=== PATIENT | male | born 1970 | race Caucasian/White ===

== ENCOUNTER 2019-04-25 11:58 | Emergency (ER) | payer BC ==
[2019-04-25 12:47] LABS: ABS Eosinophils 0.1 10^3/ul (0-0.6); ABS Lymphocytes 2.1 10^3/ul (1.0-4.8); ABS Monocytes 0.4 10^3/ul (0-0.8); ABS Neutrophils 3.9 10^3/ul (1.5-7.7); Eosinophil % 1.3 %; Hematocrit 45 % (42-52); Lymphocyte % 31.7 %; Mean Corpuscular HGB Conc 35 g/dL (31-36); Mean Corpuscular Hemoglobin 30 pg (27-31); Mean Corpuscular Volume 86 fL (80-94); Nucleated Red Blood Cells % 0.1; Platelet Count 242 10^3/uL (150-450); Red Blood Count 5.25 10^6 /uL (4.18-5.48); Red Cell Distribution Width 12 % (10-15); White Blood Count 6.6 10^3/uL (3.5-10.8)
[2019-04-25 13:04] LABS: Albumin 4.5 g/dL (3.2-5.2); Albumin/Globulin Ratio 1.9 (1-3); BUN/Creatinine Ratio 14.3 (8-20); Calcium 9.6 mg/dL (8.6-10.3); EGFR African American 91.2 (>60); EGFR Non-African American 75.4 (>60); Globulin 2.4 g/dL (2-4); Total Bilirubin 0.5 mg/dL (0.2-1.0); Total Protein 6.9 g/dL (6.4-8.9); Troponin I 0.01 ng/mL (<0.03)
[2019-04-25 13:13] LABS: INR 1.02 (0.82-1.09)
--- OUTSIDE RECORDS SUMMARY | 2019-04-25 13:51 | XMS REPORT | Continuity of Care Document ---
:1970 External Reference #:[id number] Author Name Kevin Livingston MD Address [address] [place] [id number] Problems Description No Information Available Social History Type Date Description Comments Sex Unknown Allergies, Adverse Reactions, Alerts Description No Known Drug Allergies Medications Description No Active Medications Immunizations CPT Code Status Date Vaccine Lot # [id number] Given 03/03/2016 Influenza Virus Vaccine, Quadrivalent, Split Virus, Im Use 0.5ML 88764 Given 03/03/2016 Flu < 65 years 25743 Given 03/03/2016 Influenza Virus Vaccine, Quadrivalent, Split, Preservative Free 68434 Given 03/03/2016 Flumist 45705 Given 03/03/2016 Flu High Dose 17912 Given 03/03/2016 Influenza Virus Vaccine, Split, Preserv Free, Intradermal Use 51272 Given 04/23/2015 Influenza Virus Vaccine, Quadrivalent, Split Virus, Im Use 0.5ML 04277 Given 04/23/2015 Flu < 65 years 18998 Given 04/23/2015 Influenza Virus Vaccine, Quadrivalent, Split, Preservative Free 73846 Given 04/23/2015 Flumist 31665 Given 04/23/2015 Flu High Dose 36879 Given 04/07/2014 Flu High Dose 72557 Given 04/07/2014 Flumist 64314 Given 04/07/2014 Influenza Virus Vaccine, Quadrivalent, Split, Preservative Free 73520 Given 04/07/2014 Flu < 65 years 64919 Given 04/07/2014 Influenza Virus Vaccine, Quadrivalent, Split Virus, Im Use 0.5ML 95898 Given 03/10/2013 Influenza Virus Vaccine Split Virus Intramuscular Use 0.5ML 54603 Given 03/10/2013 Flu High Dose 21522 Given 03/10/2013 Flumist 95808 Given 03/10/2013 Influenza Virus Vaccine, Quadrivalent, Split, Preservative Free 46125 Given 03/10/2013 Flu < 65 years 90138 Given 03/10/2013 Influenza Virus Vaccine, Quadrivalent, Split, Im Use 0.25ML 26802 Given 03/10/2013 Influenza Virus Vaccine, Quadrivalent, Split, Im Use 0.25ML 51264 Given 03/10/2013 Influenza Virus Vaccine, Quadrivalent, Split, Im Use 0.25ML 19262 Given 03/10/2013 Influenza Virus Vaccine, Quadrivalent, Split, Im Use 0.25ML 13440 Given 11/10/2012 Tdap - Boostrix/Adacel 73081 Given 02/27/2012 Influenza Virus Vaccine Split Virus Intramuscular Use 0.5ML 49941 Given 02/27/2012 Flu High Dose 06254 Given 02/27/2012 Flumist 01367 Given 02/27/2012 Influenza Virus Vaccine, Quadrivalent, Split, Preservative Free 99496 Given 02/27/2012 Flu < 65 years 33784 Given 02/27/2012 Influenza Virus Vaccine, Quadrivalent, Split, Im Use 0.25ML 45574 Given 02/27/2012 Influenza Virus Vaccine, Quadrivalent, Split, Im Use 0.25ML 20794 Given 02/27/2012 Influenza Virus Vaccine, Quadrivalent, Split, Im Use 0.25ML 07638 Given 02/27/2012 Influenza Virus Vaccine, Quadrivalent, Split, Im Use 0.25ML 75192 Given 03/28/2011 Influenza Virus Vaccine, Split Virus, Preservative Free Im 0.5ML 50595 Given 03/28/2011 Flu High Dose 91870 Given 03/28/2011 Flumist 38358 Given 03/28/2011 Influenza Virus Vaccine, Quadrivalent, Split, Preservative Free 42973 Given 03/28/2011 Flu < 65 years 74346 Given 03/28/2011 Flu < 65 years 22868 Given 03/28/2011 Influenza Virus Vaccine, Quadrivalent, Split, Im Use 0.25ML 91813 Given 03/28/2011 Influenza Virus Vaccine, Quadrivalent, Split, Im Use 0.25ML 41072 Given 03/28/2011 Influenza Virus Vaccine, Quadrivalent, Split, Im Use 0.25ML 62098 Given 04/19/2010 Influenza Virus Vaccine, Quadrivalent, Split, Im Use 0.25ML 85665 Given 04/19/2010 Influenza Virus Vaccine Split Virus Intramuscular Use 0.5ML 44153 Given 04/02/2009 Influenza Virus Vaccine, Quadrivalent, Split, Im Use 0.25ML 83095 Given 04/02/2009 Influenza Virus Vaccine, Quadrivalent, Split, Im Use 0.25ML 55019 Given 04/02/2009 Influenza Vaccine, Pandemic Formulation, H1N1 32875 Given 04/02/2009 Influenza Virus Vaccine Split Virus Intramuscular Use 0.5ML 46615 Given 04/02/2009 H1N1 Immunization Admin (Intramuscular,Intranasal) Inc Counseling 24265 Given 07/30/2005 Pediarix - Dtap/HepB/Polio 46031 Given 07/30/2005 Pneumococcal Conjugate Vaccine 7 Valent For Intramuscular Use 15617 Given 07/30/2005 Hib ActiHib/Hiberix 30246 Given 04/02/2005 Influenza Virus Vaccine Split Virus Intramuscular Use 0.5ML Vital Signs Date Vital Result Comment 03/01/2019 8:50am BP Systolic 140 mmHg BP Diastolic 78 mmHg Height 66.25 inches 5'6.25" Weight 181.00 lb Heart Rate 95 /min Body Temperature 96.9 F O2 % BldC Oximetry 96 % BMI (Body Mass Index) 29.0 kg/m2 08/05/2018 10:54am BP Systolic 124 mmHg Weight 190.00 lb Heart Rate 87 /min Body Temperature 97.1 F O2 % BldC Oximetry 97 % Results Test Date Facility Test Result H/L Range Note CBC Auto 03/01/2019 [facility] White Blood 8.0 10^3/uL Normal 3.5-10.[address] [place] [address] [phone] Red Blood Count 5.18 10^6/uL Normal 4.18-5.48 Hemoglobin 15.9 g/dL Normal 14.0-18.0 Hematocrit 45 % Normal 42-52 Mean Corpuscular Volume 87 fL Normal 80-94 Mean Corpuscular Hemoglobin 31 pg Normal 27-31 Mean Corpuscular HGB Conc 35 g/dL Normal 31-36 Red Cell Distribution Width 12 % Normal 10-15 Platelet Count 216 10^3/uL Normal 150-450 Mean Platelet Volume 7.1 fL Low 7.4-10.4 Abs Neutrophils 4.8 10^3/uL Normal 1.5-7.7 Abs Lymphocytes 2.4 10^3/uL Normal 1.0-4.8 Abs Monocytes 0.7 10^3/uL Normal 0-0.8 Abs Eosinophils 0.1 10^3/uL Normal 0-0.6 Abs Basophils 0.1 10^3/uL Normal 0-0.2 Abs Nucleated RBC 0.0 10^3/uL Granulocyte % 60.6 % Lymphocyte % 29.7 % Monocyte % 8.2 % Eosinophil % 0.8 % Basophil % 0.7 % Nucleated Red Blood Cells % 0.3 Laboratory test 03/01/2019 [facility] TSH (Thyroid <pending> finding [address] [place]) [place] [address] [phone] Laboratory test 03/01/2019 [facility] Ferritin <pending> finding [address] [place] [address] [phone] Procedures Description No Information Available Medical Devices Description No Information Available Encounters Type Date Location Provider Dx Diagnosis Office Visit 03/01/2019 9:00a [facility] Kevin Livingston MD Z00.00 Encntr for general adult medical exam w/o abnormal findings Assessments Date Code Description Provider 03/01/2019 Z00.00 Encounter for general adult medical examination Kevin Livingston MD without abnormal findings Plan of Treatment 03/01/2019 - Kevin Livingston MDZ00.00 Encounter for general adult medical examination without abnormal findingsAllNew Medication:No Active Medications - Referral:Chloe Zamorano, Functional Status Description No Information Available Mental Status Description No Information Available Referrals Refer to Reason for Referral Status Appt Date Chloe Zamorano insomnia, fatigue, Sent [address] [id number]
--- OUTSIDE RECORDS SUMMARY | 2019-04-25 13:51 | XMS REPORT | Continuity of Care Document ---
:1970 External Reference #:[id number] Author Name Kevin Livingston MD Address [address] [place] [id number] Problems Description No Information Available Social History Type Date Description Comments Sex Unknown Allergies, Adverse Reactions, Alerts Description No Known Drug Allergies Medications Description No Active Medications Immunizations CPT Code Status Date Vaccine Lot # [id number] Given 03/01/2019 Flu < 65 years [id number] 07993 Given 03/03/2016 Influenza Virus Vaccine, Quadrivalent, Split Virus, Im Use 0.5ML 23212 Given 03/03/2016 Flu < 65 years 53837 Given 03/03/2016 Influenza Virus Vaccine, Quadrivalent, Split, Preservative Free 01774 Given 03/03/2016 Flumist 88689 Given 03/03/2016 Flu High Dose 38465 Given 03/03/2016 Influenza Virus Vaccine, Split, Preserv Free, Intradermal Use 31262 Given 04/23/2015 Influenza Virus Vaccine, Quadrivalent, Split Virus, Im Use 0.5ML 79525 Given 04/23/2015 Flu < 65 years 28220 Given 04/23/2015 Influenza Virus Vaccine, Quadrivalent, Split, Preservative Free 52390 Given 04/23/2015 Flumist 45150 Given 04/23/2015 Flu High Dose 05208 Given 04/07/2014 Flu High Dose 27469 Given 04/07/2014 Flumist 31278 Given 04/07/2014 Influenza Virus Vaccine, Quadrivalent, Split, Preservative Free 34575 Given 04/07/2014 Flu < 65 years 13341 Given 04/07/2014 Influenza Virus Vaccine, Quadrivalent, Split Virus, Im Use 0.5ML 25870 Given 03/10/2013 Influenza Virus Vaccine Split Virus Intramuscular Use 0.5ML 76710 Given 03/10/2013 Flu High Dose 78355 Given 03/10/2013 Flumist 89991 Given 03/10/2013 Influenza Virus Vaccine, Quadrivalent, Split, Preservative Free 18935 Given 03/10/2013 Flu < 65 years 44122 Given 03/10/2013 Influenza Virus Vaccine, Quadrivalent, Split, Im Use 0.25ML 11476 Given 03/10/2013 Influenza Virus Vaccine, Quadrivalent, Split, Im Use 0.25ML 62938 Given 03/10/2013 Influenza Virus Vaccine, Quadrivalent, Split, Im Use 0.25ML 72376 Given 03/10/2013 Influenza Virus Vaccine, Quadrivalent, Split, Im Use 0.25ML 94484 Given 11/10/2012 Tdap - Boostrix/Adacel 85339 Given 02/27/2012 Influenza Virus Vaccine Split Virus Intramuscular Use 0.5ML 19410 Given 02/27/2012 Flu High Dose 39243 Given 02/27/2012 Flumist 81664 Given 02/27/2012 Influenza Virus Vaccine, Quadrivalent, Split, Preservative Free 76995 Given 02/27/2012 Flu < 65 years 50160 Given 02/27/2012 Influenza Virus Vaccine, Quadrivalent, Split, Im Use 0.25ML 68499 Given 02/27/2012 Influenza Virus Vaccine, Quadrivalent, Split, Im Use 0.25ML 26923 Given 02/27/2012 Influenza Virus Vaccine, Quadrivalent, Split, Im Use 0.25ML 49565 Given 02/27/2012 Influenza Virus Vaccine, Quadrivalent, Split, Im Use 0.25ML 35413 Given 03/28/2011 Influenza Virus Vaccine, Split Virus, Preservative Free Im 0.5ML 31121 Given 03/28/2011 Flu High Dose 19892 Given 03/28/2011 Flumist 07718 Given 03/28/2011 Influenza Virus Vaccine, Quadrivalent, Split, Preservative Free 52505 Given 03/28/2011 Flu < 65 years 03968 Given 03/28/2011 Flu < 65 years 16857 Given 03/28/2011 Influenza Virus Vaccine, Quadrivalent, Split, Im Use 0.25ML 09782 Given 03/28/2011 Influenza Virus Vaccine, Quadrivalent, Split, Im Use 0.25ML 49982 Given 03/28/2011 Influenza Virus Vaccine, Quadrivalent, Split, Im Use 0.25ML 49505 Given 04/19/2010 Influenza Virus Vaccine, Quadrivalent, Split, Im Use 0.25ML 19295 Given 04/19/2010 Influenza Virus Vaccine Split Virus Intramuscular Use 0.5ML 81898 Given 04/02/2009 Influenza Virus Vaccine, Quadrivalent, Split, Im Use 0.25ML 04417 Given 04/02/2009 Influenza Virus Vaccine, Quadrivalent, Split, Im Use 0.25ML 34246 Given 04/02/2009 Influenza Vaccine, Pandemic Formulation, H1N1 37739 Given 04/02/2009 Influenza Virus Vaccine Split Virus Intramuscular Use 0.5ML 96179 Given 04/02/2009 H1N1 Immunization Admin (Intramuscular,Intranasal) Inc Counseling 20051 Given 07/30/2005 Pediarix - Dtap/HepB/Polio 97182 Given 07/30/2005 Pneumococcal Conjugate Vaccine 7 Valent For Intramuscular Use 20088 Given 07/30/2005 Hib ActiHib/Hiberix 89899 Given 04/02/2005 Influenza Virus Vaccine Split Virus [...] Result H/L Range Note CBC Auto 03/01/2019 [facility] White Blood 8.0 10^3/uL Normal 3.5-10.[address] [place] [address] [phone] Red Blood Count 5.18 10^6/uL Normal 4.18-5.48 [...] Nucleated Red Blood Cells % 0.3 Laboratory 03/01/2019 [facility] TSH (Thyroid 1.54 Normal 0.34 -5.[address]) mcIU/[place] [address] [phone] Lipid Profile 03/01/2019 [facility] Triglycerides 490 mg/dL 1 (Trig/Chol/HD [address]) [place], [place] [id number] [phone] Cholesterol 226 mg/dL 2 HDL Cholesterol 39.6 mg/dL 3 LDL Cholesterol (SEE NOTE) mg/dL 4 Laboratory test 03/01/2019 [facility] Ferritin 242.0 ng/mL Normal 24-[address] [place], [place] [id number] [phone] Comp Metabolic 03/01/2019 [facility] Sodium 138 mmol/L Normal 135-145 Panel [address] [place], [place] [id number] [phone] Potassium 4.1 mmol/L Normal 3.5-5.0 Chloride 104 mmol/L Normal 101-111 Co2 Carbon Dioxide 26 mmol/L Normal 22-32 Anion Gap 8 mmol/L Normal 2-11 Glucose 75 mg/dL Normal 70-100 Blood Urea Nitrogen 18 mg/dL Normal 6-24 Creatinine 1.02 mg/dL Normal 0.67-1.17 BUN/Creatinine Ratio 17.6 Normal 8-20 Calcium 9.7 mg/dL Normal 8.6-10.3 Total Protein 7.2 g/dL Normal 6.4-8.9 Albumin 4.7 g/dL Normal 3.2-5.2 Globulin 2.5 g/dL Normal 2-4 Albumin/Globulin Ratio 1.9 Normal 1-3 Total Bilirubin 0.50 mg/dL Normal 0.2-1.0 Alkaline Phosphatase 55 U/L Normal 34-104 Alt 47 U/L Normal 7-52 Ast 25 U/L Normal 13-39 Egfr Non- 78.0 >60 Egfr 94.3 >60 5 Laboratory test 03/01/2019 [facility] LDL Cholesterol 123 mg/dL [address] [place] [address] [phone] Desirable: <150 Borderline High: 150-199 High: 200-499 Very High: >500 2 Desirable: <200 Borderline High: 200-239 High: >239 3 Low: <40 Desirable: 40-60 High: >60 4 Unable to calculate LDL as triglyceride is > 400 5 Because ethnic data is not always readily available, this report includes an eGFR for both -Americans and non- Americans. The National Kidney Disease Education Program (NKDEP) does not endorse the use of the MDRD equation for patients that are not between the ages of 18 and 70, are , have extremes of body size, muscle mass, or nutritional status, or are non- or non-. According to the National Kidney Foundation, irrespective of diagnosis, the stage of the disease is based on the level of kidney function: Stage Description GFR(mL/min/1.73 m(2)) 1 Kidney damage with normal or decreased GFR 90 2 Kidney damage with mild decrease in GFR 60-89 3 Moderate decrease in GFR 30-59 4 Severe decrease in GFR 15-29 5 Kidney failure <15 (or dialysis) 6 Desirable: <100 Near Optimal: 100-129 Borderline High: 130-159 High: 160-189 Very High: >189 Procedures Description No Information Available Medical Devices [...] Description No Information Available Referrals Refer to Dr Reason for Referral Status Appt Date Chloe Zamorano insomnia, fatigue, Sent [address] [id number] [phone]
[2019-04-25 13:52] LABS: Potassium 4.1 mmol/L (3.5-5.0)
[2019-04-25] MEDS ORDERED: Ketorolac INJ* 30 MG/ML 1 ML VIAL IV PUSH ONE (14:11)
--- NOTE | 2019-04-25 14:22 | ED ---
HPI Chest Pain - HPI Summary HPI Summary: The patient is a [id number]-male presenting to [facility] emergency department with a chief complaint of sudden onset left anterior chest pain this afternoon. He reports that he was running on the treadmill this morning when he sneezed, and then suddenly felt a pain in the left chest that radiates into the upper back. The pain has been dull but constant since onset rated 4/10 in severity now. He has not taken any medications prior to arrival for treatment. He denies any nausea, vomiting, shortness of breath, or dizziness. He states that this could be similar to pulling a muscle before, but previously those pains would not last as long. PMHx: hypertension (no meds). Former smoker, occasional EtOH, no substance use. Medications reviewed. Allergies noted. - History of Current Complaint Chief Complaint: EDChestPainROMI Time Seen by Provider: 04/25/19 13:55 Hx Obtained From: Patient Onset/Duration: Started Hours Ago, Still Present Timing: Constant, Lasting Hours Initial Severity: Moderate Current Severity: Moderate Pain Intensity: 4 Pain Scale Used: 0-10 Numeric Chest Pain Location: Left Anterior Chest Pain Radiates: No Character: Dull/Aching Aggravating Factor(s): Nothing Alleviating Factor(s): Nothing Associated Signs and Symptoms: Positive: Chest Pain. 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 Denies: Hx Chronic Obstructive Pulmonary Disease (COPD) GI History: Denies: Hx Ulcer Sensory History: Denies: Hx Contacts or Glasses, Hx Hearing Aid Opthamlomology History: Denies: Hx Contacts or Glasses Neurological History: 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 Psychiatric History: Denies: Hx Panic Disorder - Surgical History Surgical History: Yes Surgery Procedure, Year, and Place: Back surgery for herniated disc 2013 - Immunization History Date of Influenza Vaccine: 2019 Immunizations Up to Date: Yes Infectious Disease History: No Infectious Disease History: Denies: Hx Hepatitis, Hx Human Immunodeficiency Virus (HIV), History Other Infectious Disease, Traveled Outside the [place] in Last 30 Days - Family History Known Family History: Negative: Cardiac Disease - Social History Alcohol Use: Occasionally Hx Substance Use: No Substance Use Type: Reports: None Hx Tobacco Use: Yes Smoking Status (MU): Former Smoker Review of Systems Positive: Chest Pain - left anterior radiating into back Negative: Shortness Of Breath Negative: Vomiting, Nausea Neurological: Other - Negative: dizziness All Other Systems Reviewed And Are Negative: Yes Physical Exam - Summary Physical Exam Summary: VITAL SIGNS: Reviewed. GENERAL: Patient is a well-developed and nourished male who is lying comfortable in the stretcher. Patient is not in any acute respiratory distress. HEAD AND FACE: No signs of trauma. No ecchymosis, hematomas or skull depressions. No sinus tenderness. EYES: PERRLA, EOMI x 2, No injected conjunctiva, no nystagmus. EARS: Hearing grossly intact. Ear canals and tympanic membranes are within normal limits. MOUTH: Oropharynx within normal limits. NECK: Supple, trachea is midline, no adenopathy, no JVD, no carotid bruit, no c- spine tenderness, neck with full ROM. CHEST: Symmetric, reproducible chest pain to palpation. LUNGS: Clear to auscultation bilaterally. No wheezing or crackles. CVS: Regular rate and rhythm, S1 and S2 present, no murmurs or gallops appreciated. ABDOMEN: Soft, non-tender. No signs of distention. No rebound, no guarding, and no masses palpated. Bowel sounds are normal. EXTREMITIES: FROM in all major joints, no edema, no cyanosis or clubbing. NEURO: Alert and oriented x 3. No acute neurological deficits. Speech is normal and follows commands. SKIN: Dry and warm. Triage Information Reviewed: Yes Vital Signs On Initial Exam: Initial Vitals Temp Pulse Resp BP Pulse Ox 97.9 F 77 19 158/100 98 04/25/19 12:01 04/25/19 12:01 04/25/19 12:01 04/25/19 12:01 04/25/19 12:01 Vital Signs Reviewed: Yes Procedures - Sedation Patient Received Moderate/Deep Sedation with Procedure: No Diagnostics - Vital Signs Vital Signs Temp Pulse Resp BP Pulse Ox 04/25/19 13:33 75 138/90 95 04/25/19 13:30 73 95 04/25/19 12:01 97.9 F 77 19 158/100 98 - Laboratory Lab Results: Lab Results 04/25/19 04/25/19 04/25/19 Range/Units 12:17 12:17 12:17 WBC 6.6 (3.5-10.8) 10^3/uL RBC 5.25 (4.18-5.48) 10^6 /uL Hgb 16.0 (14.0-18.0) g/dL Hct 45 (42-52) % MCV 86 (80-94) fL MCH 30 (27-31) pg MCHC 35 (31-36) g/dL RDW 12 (10-15) % Plt Count 242 (150-450) 10^3/uL MPV 7.0 L (7.4-10.4) fL Neut % (Auto) 59.4 % Lymph % (Auto) 31.7 % Placer % (Auto) 6.8 % Eos % (Auto) 1.3 % Baso % (Auto) 0.8 % Absolute Neuts (auto) 3.9 (1.5-7.7) 10^3/ul Absolute Lymphs (auto) 2.1 (1.0-4.8) 10^3/ul Absolute Monos (auto) 0.4 (0-0.8) 10^3/ul Absolute Eos (auto) 0.1 (0-0.6) 10^3/ul Absolute Basos (auto) 0.0 (0-0.2) 10^3/ul Absolute Nucleated RBC 0.0 10^3/ul Nucleated RBC % 0.1 INR (Anticoag Therapy) 1.02 (0.82-1.09) Sodium 137 (135-145) mmol/L Potassium 4.1 (3.5-5.0) mmol/L Chloride 102 (101-111) mmol/L Carbon Dioxide 26 (22-32) mmol/L Anion Gap 9 (2-11) mmol/L BUN 15 (6-24) mg/dL Creatinine 1.05 (0.67-1.17) mg/dL Est GFR ( Amer) 91.2 (>60) Est GFR (Non-Af Amer) 75.4 (>60) BUN/Creatinine Ratio 14.3 (8-20) Glucose 104 H (70-100) mg/dL Calcium 9.6 (8.6-10.3) mg/dL Total Bilirubin 0.50 (0.2-1.0) mg/dL AST 22 (13-39) U/L ALT 39 (7-52) U/L Alkaline Phosphatase 55 (34-104) U/L Troponin I 0.01 (<0.03) ng/mL Total Protein 6.9 (6.4-8.9) g/dL Albumin 4.5 (3.2-5.2) g/dL Globulin 2.4 (2-4) g/dL Albumin/Globulin Ratio 1.9 (1-3) Result Diagrams: 04/25/19 12:17 04/25/19 12:17 Lab Statement: Any lab studies that have been ordered have been reviewed, and results considered in the medical decision making process. - Radiology Chest X-Ray Radiology Interpretation Completed By: Radiologist Summary of Radiographic Findings: Impression: No evidence for acute intrathoracic disease. ED physician has reviewed this report. - EKG 1200 Cardiac Rate: NL - 74 BPM EKG Rhythm: Sinus Rhythm EKG Comparison: No Significant Change - Similar to previous EKG done on 11/05/12. Summary of EKG Findings: An EKG at 1200 reveals normal sinus rhythm at 74 BPM. T -wave inversions in V4-V6. No ST elevations. ED physician has reviewed and interpreted this EKG. Re-Evaluation - Re-Evaluation First Eval Re-Evaluation Time: 15:55 Change: Improved Comment: We discussed all results and plan for discharge home. Chest Pain Course/Dx - Course Assessment/Plan: The patient is a [id number]-male presenting to [facility] emergency department with a chief complaint of sudden onset left anterior chest pain this afternoon. He reports that he was running on the treadmill this morning when he sneezed, and then suddenly felt a pain in the left chest that radiates into the upper back. The pain has been dull but constant since onset rated 4/10 in severity now. He has not taken any medications prior to arrival for treatment. He denies any nausea, vomiting, shortness of breath, or dizziness. He states that this could be similar to pulling a muscle before, but previously those pains would not last as long. PMHx: hypertension (no meds). Former smoker, occasional EtOH, no substance use. Medications reviewed. Allergies noted. In the ED course the patient was placed in a cardiac monitor technician, IV access was obtained. Blood work without any significant abnormality except for glucose of 104. Troponin of 0.01. Chest x-ray impression: No evidence for acute intrathoracic disease. EKG shows normal sinus rhythm at 74 bpm, no ST depressions, inverted T waves from V4 to V6, similar to previous EKG done on . In the ED course, the patient was given Toradol for the pain. Patient is asymptomatic at this moment. Heart to score is equal to 3. Second troponin 0.01. I discussed all the findings and test results with the patient. Patient was instructed to return to the emergency room immediately if any of the symptoms return or worsen. Plan of care was discussed with the patient and understands and agrees. All questions were answered at patient satisfaction. There were no further complaints or concerns. Lung exam before discharge: CTA B/ L. Good air exchange. No wheezing or crackles heard. CVS: S1 and S2 present. No murmurs appreciated. Patient is alert and oriented x 3. Patient is hemodynamically stable. Patient will be discharged home with follow up PCP in the next 2-3 days. - Chest Pain Differential Diagnosis/HQI/PQRI: Acute AK, ACS, Angina, CHF, Chest Wall, GI Disease, Pulmonary Edema - Diagnoses Provider Diagnoses: Chest pain Discharge ED - Sign-Out/Discharge Documenting (check all that apply): Patient Departure - Patient will be discharged home. - Discharge Plan Condition: Stable Disposition: HOME Patient Education Materials: Chest Pain (DC) Referrals: Grover Livingston MD [Primary Care Provider] - 3 Days Additional Instructions: Follow up with your primary care provider in 2-3 days. Return to the emergency department for any new or worsening symptoms. - Billing Disposition and Condition Condition: STABLE Disposition: Home - Attestation Statements Document Initiated by Scribe: Yes Documenting Scribe: Afshan Stewart Provider For Whom Hasmukh is Documenting (Include Credential): Dr. Juan Cochran MD Scribe Attestation: Afshan Pendleton scribed for Dr. Juan Cochran MD on 04/25/19 at 1856. Scribe Documentation Reviewed: Yes Provider Attestation: The documentation as recorded by the scribe, Afshan Stewart accurately reflects the service I personally performed and the decisions made by me, Dr. Juan Cochran MD Status of Scribe Document: Viewed
[2019-04-25 16:08] VITALS: BP 139/92
== END 2019-04-25 16:07 | disposition home or self-care (01) ==
LOC: ED 11:58
DX: R07.9 Chest pain, unspecified (principal); I10 Essential (primary) hypertension; J45.909 Unspecified asthma, uncomplicated; Z87.891 Personal history of nicotine dependence
CPT/HCPCS: 36415; 71046; 80053; 84484; 85025; 85610; 93005; 99283; J1885

== ENCOUNTER 2023-04-22 10:44 | Observation (INO) ==
[~2023-04-22 10:44] MED LIST: Buffered Lidocaine 1% SYRIN 1 ml INTRADERM ONE; Famotidine IV 10 MG/ML 2 ml VIAL (20 mg) IV ONE; Lactated Ringers 1000 ml BAG 1,000 ML IV SCH
[2023-04-22] MEDS ORDERED: Chlorhexidine MOUTHWASH 0.12% 15 ML UDC ONE (11:15)
[2023-04-22] MEDS ORDERED: Ondansetron 4 mg VIAL 2 MG/ML 2 ml VIAL ONE (12:16)
[2023-04-22] MEDS ORDERED: Propofol 10 MG/ML 20 ML BTL ONE (12:16)
[2023-04-22] MEDS ORDERED: Rocuronium 50 mg VIAL 10 mg/ml 5 ml VIAL (50 mg) ONE ×2 (12:16→13:52)
[2023-04-22] MEDS ORDERED: Dexamethasone IV 4 MG/ML VIAL 1 ml VIAL ONE (12:16)
[2023-04-22] MEDS ORDERED: Lidocaine 2% PF 5 ML VIAL ONE (12:16)
[2023-04-22] MEDS ORDERED: Famotidine IV 10 MG/ML 2 ml VIAL (20 mg) ONE (12:17)
[2023-04-22] MEDS ORDERED: fentaNYL 100 mcg/2 ml 50 MCG/ML VIAL ONE ×3 (12:17→14:49)
[2023-04-22] MEDS ORDERED: ceFAZolin 2 GM PREMIX 2 GM/50 ML BAG ONE (12:17)
[2023-04-22] MEDS ORDERED: Midazolam 2 mg/2 ml VIAL 1 mg/ml 2 ml VIAL (2 mg) ONE (12:18)
[2023-04-22 13:05] LABS: Rapid COVID-19 Molecular Undetected (Undetected)
[2023-04-22] MEDS ORDERED: Lidocaine 1% w EPI 1:100,000 MDV 20 ML VIAL ONE (13:35)
[2023-04-22] MEDS ORDERED: Thrombin 5,000 UNITS 1 APPLIC KIT - topical use - TOPICAL ONE (13:35)
[2023-04-22] MEDS ORDERED: ceFAZolin VIAL VIAL ONE (13:35)
[2023-04-22] MEDS ORDERED: Gelfoam Sponge SIZE 100 SPONGE ONE (13:35)
[2023-04-22] MEDS ORDERED: HYDROmorphone 1 MG/1 ML SYRINGE IV PRN (14:26)
[2023-04-22] MEDS ORDERED: fentaNYL 100 mcg/2 ml 50 MCG/ML VIAL IV PRN (14:26)
[2023-04-22] MEDS ORDERED: Ondansetron 4 mg VIAL 2 MG/ML 2 ml VIAL IV PRN ×2 (14:26→15:35)
[2023-04-22] MEDS ORDERED: Naloxone 0.4 mg VIAL 0.4 mg/ml 1 ml VIAL IV PRN (14:26)
[2023-04-22] MEDS ORDERED: HYDROmorphone 0.5 MG/0.5 ML SYRINGE ONE ×2 (14:36→14:48)
[2023-04-22] MEDS ORDERED: Morphine 2 MG/ML SYRINGE IV PRN (15:35)
[2023-04-22] MEDS ORDERED: Phenol 1.4% Throat Spray BTL MT PRN (15:35)
[2023-04-22] MEDS ORDERED: Dextran 70/Hypromellose Tears Eye Drops 15 ml BTL (for Artificials Tears) BOTH EYES PRN (15:35)
[2023-04-22] MEDS ORDERED: Magnesium Hydroxide LIQ 30 ML UDC PO PRN (15:35)
[2023-04-22] MEDS ORDERED: Senna TAB 8.6 mg TAB PO PRN (15:35)
[2023-04-22] MEDS ORDERED: Benzocaine/Menthol LOZ MT PRN (15:35)
[2023-04-22] MEDS ORDERED: Calcium Carb (TUMS) 500 mg CHEW TAB PO PRN (15:35)
[2023-04-22] MEDS ORDERED: hydrALAZINE 20 mg/ml 1 ML Vial IV ONE (15:57)
[2023-04-22] MEDS: hydrALAZINE 20 mg/ml 1 ML Vial IV IV SLOW PU ONE ×4 (15:59→16:51)
[2023-04-22] MEDS ORDERED: Lactated Ringers 1000 ml BAG 1,000 ML IV SCH (16:00)
[2023-04-22] MEDS ORDERED: Naloxone 4 mg VIAL 0.4 MG/ML 10 ml VIAL (4 mg) ONE (16:35)
[2023-04-23 09:29] VITALS: BP 119/68
== END 2023-04-23 12:05 | disposition home or self-care (01) ==
LOC: SSU 10:44 → OR 10:44
PROVIDERS: ADMIT Neurological Surgery; ATTEND Neurological Surgery